=== PATIENT | female | born 1960 | race Caucasian/White ===

== ENCOUNTER 2020-05-30 14:58 | Emergency (ER) | payer OTHER, MEDICAID ==
[2020-05-30] MEDS ORDERED: Sodium Chloride 0.9% 10 ML Syringe FLUSH PRN ×2 (15:10→15:21)
[2020-05-30] MEDS ORDERED: Sodium Chloride 0.9% 1,000 ML IV SCH (15:15)
[2020-05-30] MEDS ORDERED: HYDROmorphone 0.5 MG/0.5 ML Syringe IVPUSH ONE ×2 (15:15→17:49)
[2020-05-30] MEDS ORDERED: Iopamidol 612 MG/ML 50 ML SDV IVPUSH ONE (15:21)
[2020-05-30] MEDS ORDERED: Iopamidol 612 MG/ML 100 ML Bottle IVPUSH ONE (15:21)
[2020-05-30] MEDS ORDERED: Sodium Chloride 0.9% 45 ML IV SCH (15:30)
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
== END 2020-05-30 18:20 | disposition home or self-care (01) ==
LOC: JD.ED 14:58
DX: S22.069A Unspecified fracture of T7-T8 vertebra, initial encounter for closed fracture (principal); S12.600A Unspecified displaced fracture of seventh cervical vertebra, initial encounter for closed fracture; S22.42XA Multiple fractures of ribs, left side, initial encounter for closed fracture; J44.9 Chronic obstructive pulmonary disease, unspecified; M19.90 Unspecified osteoarthritis, unspecified site; F17.210 Nicotine dependence, cigarettes, uncomplicated; Z86.73 Personal history of transient ischemic attack (TIA), and cerebral infarction without residual deficits; Z79.82 Long term (current) use of aspirin; Z79.899 Other long term (current) drug therapy; V89.2XXA Person injured in unspecified motor-vehicle accident, traffic, initial encounter
CPT/HCPCS: 36415; 70450; 71260; 72125; 72128; 72131; 73080; 74177; 80053; 80307; 83690; 85025; 96374; 96376; 99285; J1170; J7030; Q9967; 99284

== ENCOUNTER 2021-03-13 09:28 | Emergency (ER) | payer MEDICAID ==
--- NOTE | 2021-03-13 09:48 | EDM.PDOC ---
ED HPI GENERAL MEDICAL PROBLEM - General Chief Complaint: Trauma Stated Complaint: PATRICIA AMB Time Seen by Provider: 03/13/21 09:30 Source of Information: Reports: Patient, EMS History Limitations: Reports: No Limitations - History of Present Illness INITIAL COMMENTS - FREE TEXT/NARRATIVE: 60-year-old female presents to the ED per ambulance. She states she went out to have a cigarette on the deck outside this morning and got tripped up or lost her balance and fell striking the parietal aspect of her head on the railing of the deck and falling to the floor. She suffered some abrasions to her left elbow and forearm. The left hand is already in a Ortho-Glass splint due to fracture suffered from stroke in September of this year. She denies headache nausea or vomiting at this time. She did not get up in the ambulance had to pick her up from the deck floor. Her daughter came out and picked her up and brought her into the house after she kicked the side of the house to get her attention. She is complaining of mild left hip pain but she has full range of motion. She denies any neck pain. The patient is on aspirin and Plavix. Onset: Today, Sudden Onset Date: 03/13/21 Onset Time: 08:50 Duration: Minutes: Location: Reports: Head (Left parietal scalp), Upper Extremity, Left (Left elbow and forearm area) Quality: Reports: Ache, Throbbing Severity: Mild (L throbbing) Improves with: Reports: Rest Worsens with: Reports: None, Other Context: Reports: Trauma (Got tripped up and fell versus losing her balance striking the left side of her head on a railing outside on the deck this morning.). Denies: Activity, Exercise, Lifting, Sick Contact Associated Symptoms: Reports: Headaches, Shortness of Breath. Denies: Confusion, Chest Pain, Cough, cough w sputum, Diaphoresis, Fever/Chills, Loss of Appetite, Malaise, Nausea/Vomiting, Rash, Seizure, Syncope, Weakness Treatments BINGO USHER: Reports: Other (see below) (None.) Left Upper Arm Pain Score (Numeric/FACES): 3 - Related Data Allergies Allergy/AdvReac Type Severity Reaction Status Date / Time No Known Allergies Allergy Verified 03/13/21 09:35 Home Meds: Home Meds Aspirin 81 mg PO DAILY 05/30/20 [History] Hydrocodone/Acetaminophen [HYDROcodone-Acetaminophen 5-325 MG] 1 - 2 each PO Q6HR PRN #20 tablet 05/30/20 [Rx] Oxybutynin 5 mg PO DAILY 05/30/20 [History] Pantoprazole Sodium [Protonix] 40 mg PO DAILY 05/30/20 [History] Rosuvastatin [Crestor] 10 mg PO DAILY 05/30/20 [History] traZODone HCl [Trazodone HCl] 50 mg PO ASDIRECTED PRN 05/30/20 [History] Past Medical History HEENT History: Reports: Impaired Vision Cardiovascular History: Reports: None Respiratory History: Reports: COPD Other Respiratory History: needs a sleep study Gastrointestinal History: Reports: Irritable Bowel Syndrome Genitourinary History: Reports: None 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: Musculoskeletal History: Reports: Arthritis Neurological History: Reports: CVA Psychiatric History: Reports: PTSD Endocrine/Metabolic History: Reports: None Hematologic History: Reports: None Immunologic History: Reports: None Oncologic (Cancer) History: Reports: None Dermatologic History: Reports: None - Infectious Disease History Infectious Disease History: Reports: Chicken Pox, Measles, Mumps - Past Surgical History HEENT Surgical History: Reports: Adenoidectomy, Tonsillectomy Female Surgical History: Reports: None Social & Family History - Family History Family Medical History: No Pertinent Family History Cardiac: Reports: Heart Murmur Neurological: Reports: CVA Endocrine/Metabolic: Reports: Diabetes, type II Oncologic: Reports: Skin - Caffeine Use Caffeine Use: Reports: Coffee, Soda - Living Situation & Occupation Living situation: Reports: Occupation: Unemployed Review of Systems - Review of Systems Review Of Systems: See Below Constitutional: Reports: Weakness (Still has some mild left-sided residual weakness). Denies: Chills, Diaphoresis, Fever, Other Eyes: Reports: No Symptoms, Glasses Ears: Reports: No Symptoms Nose: Reports: No Symptoms (Reading) Mouth/Throat: Reports: No Symptoms Respiratory: Reports: Shortness of Breath, Cough ( Occasional sputum production) Cardiovascular: Denies: Chest Pain, Edema, Irregular Heart Rate, Palpitations, Syncope, Other GI/Abdominal: Reports: No Symptoms Genitourinary: Reports: Other ([place] frequency with urgency.) Musculoskeletal: Reports: Other (Early left wrist and hand is any more volar Ortho-Glass splint and she is due for casting tomorrow). Denies: Neck Pain Skin: Reports: Bruising Neurological: Reports: Difficulty Walking. Denies: Confusion (Is easily due to being on Plavix and aspirin), Dizziness, Headache, Numbness, Syncope, Tingling, Trouble Speaking (Left leg is weak at times.), Weakness Psychiatric: Reports: No Symptoms ED EXAM, GENERAL - Physical Exam Exam: See Below Exam Limited By: No Limitations General Appearance: Alert, WD/WN, Anxious, Mild Distress, Other (Temperature is 36.1 degrees. Heart rate is 94 and sinus. Respiratory is 18 with O2 sats of 95% room air. BP 1 4078.) Eye Exam: Bilateral Eye: Normal Inspection (No blepharal pallor or scleral icterus.), PERRL Ears: Normal External Exam Nose: Normal Inspection, Normal Mucosa, No Blood Throat/Mouth: Normal Inspection, Normal Lips, Normal Teeth, Normal Oropharynx Head: Other (She has an area of swelling proximally 2.5 cm in diameter over her left parietal scalp chest superior and posterior to the left ear.) Neck: Normal Inspection, Supple, Non-Tender, Full Range of Motion. No: Carotid Bruit, Lymphadenopathy (L), Lymphadenopathy (R) Respiratory/Chest: No Respiratory Distress, No Accessory Muscle Use, Chest Non- Tender, Wheezing (Letter to expiratory wheezes lung bases.), Other Cardiovascular: Normal Peripheral Pulses (No pain on firm compression of ribs and sternum.), Regular Rate, Rhythm, No Edema, No Gallop, No Murmur, No Rub Peripheral Pulses: 2+: Carotid (L), Carotid (R), Posterior Tibial (L), Posterior Tibial (R), Dorsalis Pedis (L), Dorsalis Pedis (R) GI/Abdominal: Normal Bowel Sounds, Soft, Non-Tender, No Organomegaly, No Mass, Pelvis Stable, Other (Mildly obese.). No: Guarding, Rigid, Rebound, Tender Back Exam: Normal Inspection, Full Range of Motion, Other (Patient does have a history of 2 vertebral compression fractures she believes in lumbar spine and lower thoracic spine. No pain on examination today. No abrasions or contusions). No: CVA Tenderness (L), CVA Tenderness (R) Extremities: Leg Pain (Has discomfort on palpation over the left greater trochanteric process and hip but has full internal and external rotation and flexion of the hip with no evidence of bony injury.), Other (Superficial abrasions to the left lower humerus and elbow area. No injury to the right upper extremity or shoulder. No pain on pression of left shoulder or clavicle.) Neurological: Alert, Oriented, CN II-XII Intact, Normal Cognition Psychiatric: Normal Affect, Anxious Skin Exam: Warm, Dry, Intact, Normal Color, No Rash #1 Interpretation EKG Date: 03/13/21 Time: 09:33 Rhythm: NSR Rate (Beats/Min): 90 [place]: Normal P-Wave: Enlarged (Consider mild left atrial hypertrophy) QRS: Other (Early R wave transition V3 consider septal hypertrophy pattern) ST-T: Other (Nonspecific T wave flattening in lead I in inversion aVL with Q waves noted in aVL consider old lateral wall infarct) QT: Normal EKG Interpretation Comments: Abnormal ECG Course - Vital Signs Last Recorded V/S: Last Vital Signs Temp 37.1 C 03/13/21 12:56 Pulse 70 03/13/21 12:56 Resp 18 03/13/21 12:56 BP 137/80 03/13/21 12:56 Pulse Ox 97 03/13/21 12:56 - Orders/Labs/Meds Labs: Laboratory Tests 03/13/21 03/13/21 Range/Units 09:52 09:52 WBC 8.70 (3.98-10.04) K/mm3 RBC 4.40 (3.98-5.22) M/mm3 Hgb 12.6 (11.2-15.7) gm/dl Hct 38.3 (34.1-44.9) % MCV 87.0 (79.4-94.8) fl MCH 28.6 (25.6-32.2) pg MCHC 32.9 (32.2-35.5) g/dl RDW Std Deviation 46.8 H (36.4-46.3) fL Plt Count 323 (182-369) K/mm3 MPV 9.2 L (9.4-12.3) fl Neut % (Auto) 66.7 (34.0-71.1) % Lymph % (Auto) 19.3 (19.3-51.7) % [place] % (Auto) 9.9 (4.7-12.5) % Eos % (Auto) 3.2 (0.7-5.8) Baso % (Auto) 0.3 (0.1-1.2) % Neut # (Auto) 5.80 (1.56-6.13) K/mm3 Lymph # (Auto) 1.68 (1.18-3.74) K/mm3 [place] # (Auto) 0.86 H (0.24-0.36) K/mm3 Eos # (Auto) 0.28 (0.04-0.36) K/mm3 Baso # (Auto) 0.03 (0.01-0.08) K/mm3 Sodium 140 (136-145) mEq/L Potassium 4.7 (3.5-5.1) mEq/L Chloride 105 (98-107) mEq/L Carbon Dioxide 25 (21-32) mEq/L Anion Gap 14.7 (5-15) BUN 15 (7-18) mg/dL Creatinine 0.9 (0.55-1.02) mg/dL Est Cr Clr Drug Dosing 67.05 mL/min Estimated GFR (MDRD) > 60 (>60) mL/min BUN/Creatinine Ratio 16.7 (14-18) Glucose 122 H (70-99) mg/dL Calcium 8.5 (8.5-10.1) mg/dL Total Bilirubin 0.5 (0.2-1.0) mg/dL AST 22 (15-37) U/L ALT 45 (14-59) U/L Alkaline Phosphatase 128 H (46-116) U/L Total Protein 7.1 (6.4-8.2) g/dl Albumin 3.7 (3.4-5.0) g/dl Globulin 3.4 gm/dL Albumin/Globulin Ratio 1.1 (1-2) Meds: Medications Discontinued Medications Generic Name Dose Route Start Last Admin Trade Name Freq PRN Reason Stop Dose Admin Al Hydroxide/Mg Hydroxide 30 ml 03/13/21 11:04 03/13/21 11:33 Aluminum Hydroxide/Magnesium Hydroxide/Simethicone Susp 30 Ml Cup PO 03/13/21 11:05 30 ml ONETIME ONE Administration - Radiology Interpretation Free Text/Narrative:: 60-year-old female presents to the ED per [facility] after getting tripped up or losing her balance and falling on the deck outside of her daughter's home where she resides. Her left side is weak post stroke in September of this year. She hit the left side of her head primarily parietal scalp on the rail of the deck. No loss of conscious but did days her. She ended up on the deck floor and unable to get up on her own volition. Her left hand is immobilized in a volar Ortho-Glass splint due to fracture I believe in one of her fingers. She is due for casting tomorrow. No nausea vomiting. No neck injury on exam. She does have some abrasions to the left elbow and distal numerous on the left side. There is over the left hip and greater trochanteric process but has full range of motion a internal/external rotation on exam. Due to being on Plavix and aspirin she will have CT head performed. - Re-Assessments/Exams Free Text/Narrative Re-Assessment/Exam: 03/13/21 10:43 T of the head was performed without IV contrast today. Findings revealed a low-density is seen within the posterior right frontal lobe as well as a small portion of the parietal region. This finding is most likely due to previous infarct or encephalomalacia from prior trauma. Several calcifications are seen within this low density. Low-density causes ex vacuo enlargement of the right lateral ventricle. Ventricles as well as the sulci over the convexities and basal cisterns are otherwise mildly prominent. No other abnormal signal is seen within the brain parenchyma. No midline shift or mass- effect is seen. No evidence of intracranial hemorrhage is identified. Bone window settings were reviewed. Visualized mastoid sinuses and paranasal sinuses show no acute. No acute calvarial abnormalities appreciated. 03/13/21 11:03 I have discussed the findings of her CT with the patient and indicated that there is no intracranial bleeding. She is developing hematoma over the distal left lateral humerus with symptoms from her fall. She now appreciates pain on the dorsal aspect of her right lateral foot and it is bruised in this area. She will have her have x-rays of her right foot performed. She is complaining of heartburn and I will therefore give her Maalox 30 mils p.o. 03/13/21 11:58 x-rays of the right foot do not reveal any broken bones. Bones are very osteopenic. We will try and get her up walking and see how she does. She tends to be a little off kilter since her stroke and has to be careful how she walks. He does have a walker and a cane which she rarely uses. 03/13/21 12:43: We did get the patient up and walking in the hallway and she did relatively well. She is mildly off balance due to previous CVA. Had minimal p ain in her right foot. Therefore her daughter will come and pick her up and she will be discharged from the department. Departure - Departure Time of Disposition: 13:25 Disposition: Home, Self-Care 01 Condition: Fair Clinical Impression: Fall as cause of accidental injury at home as place of occurrence Qualifiers: Encounter type: initial encounter Qualified Code(s): W19.XXXA - Unspecified fall, initial encounter Scalp contusion Qualifiers: Encounter type: initial encounter Qualified Code(s): S00.03XA - Contusion of scalp, initial encounter Contusion of right foot Qualifiers: Encounter type: initial encounter Qualified Code(s): S90.31XA - Contusion of right foot, initial encounter - Discharge Information *PRESCRIPTION DRUG MONITORING PROGRAM REVIEWED*: Not Applicable *COPY OF PRESCRIPTION DRUG MONITORING REPORT IN PATIENT CAROLINE: Not Applicable Instructions: Foot Contusion, [id number], Facial or Scalp Contusion, [id number] Referrals: Rhona Martin NP [Primary Care Provider] - Forms: ED Department Discharge Additional Instructions: Evaluation in the emergency room today in regards to injury sustained from either losing her balance or tripping and falling on the outside deck this morning. Reportedly struck the right parietal aspect of your head on the railing on your way to the ground. No loss of consciousness. CT scan of the head was performed as you are already on blood thinners and aspirin and no intracranial bleeding or signs of stroke are evident. Evidence of an old stroke involving the right frontal temporal lobe is evident. X-rays of the right foot also carried out due to development of ecchymoses or bruising over the right lateral foot. No fractures were identified but the bones are very thin or osteopenic. You should have a DEXA scan done in the next 2 to 3 months. He also suffered abrasions and contusion to your left lower arm above your elbow. This area will need to be cleansed daily with soap and water and topical antibiotic such as bacitracin or Polysporin applied to the area once daily for the next 3 days to prevent secondary infection. Sepsis Event Note (ED) - Focused Exam Vital Signs: Vital Signs Temp Pulse Resp BP Pulse Ox 03/13/21 12:56 37.1 C 70 18 137/80 97 03/13/21 09:30 36.1 C 94 18 140/78 95
--- NOTE | 2021-03-13 10:05 | CT ---
Head CT Technique: Multiple axial sections through the brain were obtained. Intravenous contrast was not utilized. Reconstructed coronal and sagittal images were obtained. Comparison: No prior intracranial imaging is available. Findings: Low density is seen within the posterior right frontal as well as a small portion of the parietal region. This finding is most likely due to previous infarct or encephalomalacia from prior trauma. Several calcifications are seen within this low density. Low-density causes ex vacuole enlargement of the right lateral ventricle. Ventricles as well as sulci over the convexities and basal cisterns are otherwise mildly prominent. No other abnormal signal is seen within the brain parenchyma. No midline shift or mass-effect is seen. No evidence of intracranial hemorrhage. Bone window settings were reviewed. Visualized mastoid sinuses and paranasal sinuses show nothing acute. No acute calvarial abnormality is appreciated. Impression: 1. Low density within the posterior right frontal as well as a small portion of the parietal lobe on the right side. Findings either represent old trauma with encephalomalacia or an old infarct. These findings cause ex vacuole enlargement of the right lateral ventricle. 2. Mild generalized atrophy is seen. 3. No acute intracranial abnormality is appreciated. Diagnostic code #2
[2021-03-13] MEDS ORDERED: Aluminum Hydroxide/Magnesium Hydroxide/Simethicone Susp 30 ML Cup PO ONE (11:04)
--- NOTE | 2021-03-13 12:01 | CR ---
Right foot: 3 views of the right foot were obtained. Comparison: No prior foot study is available. Scattered joint space narrowing is seen within the DIP and PIP joints. Very minimal spur at the attachment of the Achilles tendon to the calcaneus is noted posteriorly. No acute fracture, dislocation or other bony abnormality is appreciated. Impression: 1. Nonacute findings as noted above. 2. No acute fracture or subluxation is seen. Diagnostic code #2
== END 2021-03-13 13:08 | disposition home or self-care (01) ==
LOC: JD.ED 09:28
DX: S00.03XA Contusion of scalp, initial encounter (principal); S90.31XA Contusion of right foot, initial encounter; S40.212A Abrasion of left shoulder, initial encounter; S50.312A Abrasion of left elbow, initial encounter; J44.9 Chronic obstructive pulmonary disease, unspecified; Z79.82 Long term (current) use of aspirin; Z79.899 Other long term (current) drug therapy; Z86.73 Personal history of transient ischemic attack (TIA), and cerebral infarction without residual deficits; W01.198A Fall on same level from slipping, tripping and stumbling with subsequent striking against other object, initial encounter; Y92.009 Unspecified place in unspecified non-institutional (private) residence as the place of occurrence of the external cause
CPT/HCPCS: 29105; 36415; 70450; 73630; 80053; 85025; 93005; 99284; A9270; 93010

== ENCOUNTER 2021-03-18 10:18 | Emergency (ER) | payer MEDICAID ==
[2021-03-18] MEDS ORDERED: Sodium Chloride 0.9% 10 ML Syringe FLUSH PRN (10:36)
[2021-03-18] MEDS ORDERED: HYDROmorphone 1 MG/ML Syringe IVPUSH ONE (10:36)
[2021-03-18] MEDS ORDERED: Ondansetron 4 MG/2 ML SDV IVPUSH ONE (10:36)
--- NOTE | 2021-03-18 10:41 | EDM.PDOC ---
ED HPI GENERAL MEDICAL PROBLEM - General Chief Complaint: Upper Extremity Injury/Pain Stated Complaint: RT SHOULDER INJURY Time Seen by Provider: 03/18/21 10:30 Source of Information: Reports: Patient History Limitations: Reports: No Limitations (Right shoulder and right proximal arm) - History of Present Illness INITIAL COMMENTS - FREE TEXT/NARRATIVE: 60-year-old female presents to the ED per private vehicle after falling at home this morning. She states she got up to go to the bathroom and the next and she knew she was face down on the carpet with acute pain in her right shoulder and upper arm. She denies hurting her head or neck. Pain is all in the right shoulder and proximal humerus on the right side. She denies any other injuries. Of note her left hand is immobilized in a Ortho-Glass splint due to a fracture in the wrist area. Onset: Today, Sudden Onset Date: 03/18/21 Onset Time: 09:35 Duration: Minutes: Location: Reports: Upper Extremity, Right Quality: Reports: Ache, Throbbing Severity: Moderate Improves with: Reports: Rest Worsens with: Reports: Other Context: Reports: Trauma (Fall at home with blunt trauma to the right shoulder and proximal humerus). 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.) Right Shoulder Pain Score (Numeric/FACES): 9 - Related Data Allergies Allergy/AdvReac Type Severity Reaction Status Date / Time No Known Allergies Allergy Verified 03/18/21 10:26 Home Meds: Home Meds Oxybutynin 5 mg PO DAILY 05/30/20 [History] Pantoprazole Sodium [Protonix] 40 mg PO DAILY 05/30/20 [History] Rosuvastatin [Crestor] 10 mg PO DAILY 05/30/20 [History] traZODone HCl [Trazodone HCl] 50 mg PO ASDIRECTED PRN 05/30/20 [History] Sertraline [Zoloft] 50 mg PO DAILY 03/18/21 [History] oxyCODONE HCl/Acetaminophen [Percocet 5-325 mg Tablet] 1 - 2 each PO Q4H PRN #16 tablet 03/18/21 [Rx] Past Medical History HEENT History: Reports: Impaired Vision Cardiovascular History: Reports: High Cholesterol Respiratory History: Reports: COPD Other Respiratory History: needs a sleep study Gastrointestinal History: Reports: Irritable Bowel Syndrome Genitourinary History: Reports: None 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: Musculoskeletal History: Reports: Arthritis Neurological History: Reports: CVA Psychiatric History: Reports: PTSD Endocrine/Metabolic History: Reports: None Hematologic History: Reports: None Immunologic History: Reports: None Oncologic (Cancer) History: Reports: None Dermatologic History: Reports: None - Infectious Disease History Infectious Disease History: Reports: Chicken Pox, Measles, Mumps - Past Surgical History HEENT Surgical History: Reports: Adenoidectomy, Tonsillectomy Social & Family History - Family History Family Medical History: No Pertinent Family History Cardiac: Reports: Heart Murmur Neurological: Reports: CVA Endocrine/Metabolic: Reports: Diabetes, type II Oncologic: Reports: Skin - Tobacco Use Tobacco Use Status *Q: Current Every Day Tobacco User Years of Tobacco use: 30 Packs/Tins Daily: 0.2 - Caffeine Use Caffeine Use: Reports: Coffee, Soda - Recreational Drug Use Recreational Drug Use: No - Living Situation & Occupation Living situation: Reports: Occupation: Unemployed Review of Systems - Review of Systems Review Of Systems: See Below Constitutional: Reports: No Symptoms Eyes: Reports: Glasses Ears: Reports: No Symptoms Nose: Reports: No Symptoms Mouth/Throat: Reports: No Symptoms Respiratory: Reports: No Symptoms Cardiovascular: Reports: Lightheadedness (At times especially when getting up from the seated or lying down position). Denies: Chest Pain, Edema, Irregular Heart Rate GI/Abdominal: Reports: No Symptoms Genitourinary: Reports: No Symptoms Musculoskeletal: Reports: Other (Forearm is in a Ortho-Glass volar splint I believe due to healing nondisplaced fracture of the radius) Skin: Reports: No Symptoms Neurological: Reports: No Symptoms Psychiatric: Reports: No Symptoms ED EXAM, GENERAL - Physical Exam Exam: See Below Exam Limited By: No Limitations General Appearance: Alert, WD/WN, Mild Distress, Other (Temperature is 36.1 with a heart rate of 95 and sinus. Respiratory to 16 with O2 sats of 97% room air. BP is reported at 135 118 which is inaccurate. Pulse pressure is too close together.) Eye Exam: Bilateral Eye: Normal Inspection (No blepharal pallor.) Throat/Mouth: Normal Inspection, Normal Lips, Normal Teeth, Normal Oropharynx, Other Head: Atraumatic, Normocephalic (No injuries to her face identified), Other Neck: Normal Inspection, Supple (No injuries to the head or face identified), Non-Tender, Full Range of Motion, Other (Tenderness in the distribution of the trapezius muscle superior belly on the right side). No: Lymphadenopathy (L), Lymphadenopathy (R) Respiratory/Chest: No Respiratory Distress, No Accessory Muscle Use, Decreased Breath Sounds (Sounds are diminished to the lower 15% lung pedro bilaterally.), Wheezing. No: Rales, Rhonchi Cardiovascular: Normal Peripheral Pulses, Regular Rate, Rhythm, No Edema, No Gallop, No Murmur, No Rub Peripheral Pulses: 2+: Carotid (L), Carotid (R), Radial (R) (Good ulnar pulse right wrist), Posterior Tibial (L), Posterior Tibial (R), Dorsalis Pedis (L), Dorsalis Pedis (R) Back Exam: Normal Inspection, Full Range of Motion. No: CVA Tenderness (L), CVA Tenderness (R) Extremities: Other (Pain and tenderness along the distal clavicle over the acromium process and AC joint with no obvious separation. Pain to palpation proximal humerus down to her elbow. Right humeral head is prominent with flattening of the lateral shoulder suggesting tear dislocation.). No: Normal Inspection Neurological: Alert, Oriented, CN II-XII Intact, Normal Cognition, Other (Normal axillary nerve sensation and radial nerve sensation dorsal right hand) Psychiatric: Normal Affect, Normal Mood Skin Exam: Warm, Dry, Intact, Normal Color, No Rash ED TRAUMA EXTREMITY PROCEDURES - Joint Reduction Right Shoulder Sedation: Conscious Sedation (Provided by ANAYELI Tate.) Pre-Procedure NV Status: Normal Post-Procedure NV Status: Normal Technique: Traction/Counter Traction Post-Reduction Imaging: Completely Reduced, No Fracture Seen Joint Reduction Complications: No Joint Reduction Complication Description: Post reduction films revealed return to normal anatomical position. She had normal sensation in the distribution of right axillary nerve and right radial nerve dorsal right hand Course - Vital Signs Last Recorded V/S: Last Vital Signs Temp 36.1 C 09/07/21 10:21 Pulse 95 03/18/21 10:21 Resp 16 03/18/21 10:21 BP 135/118 H 03/18/21 10:21 Pulse Ox 97 03/18/21 10:21 Orthostatic Blood Pressure [ 131/81 Standing] Orthostatic Blood Pressure [ 127/74 Sitting] Orthostatic Blood Pressure [ 127/73 Supine] - Orders/Labs/Meds Orders: Active Orders 24 hr Category Date Time Status Orthostatic Vital Signs [RC] ASDIRECTED Care 03/18/21 10:42 Active Peripheral IV Care [RC] . DIRECTED Care 03/18/21 10:36 Active Humerus Rt [CR] Stat Exams 03/18/21 10:38 Taken Dextrose 5%-0.9% NaCl [Dextrose 5%-Normal Saline] 1,000 Med 03/18/21 10:45 Active ml IV ASDIRECTED Sodium Chloride 0.9% [Saline Flush] Med 03/18/21 10:36 Active 10 ml FLUSH ASDIRECTED PRN Peripheral IV Insertion Adult [OM.PC] Stat Oth 03/18/21 10:36 Ordered Medication Orders Dextrose/Sodium Chloride (Dextrose 5%-Normal Saline) 1,000 mls @ 999 mls/hr IV ASDIRECTED VIRAL Last Admin: 03/18/21 11:09 Dose: 999 mls/hr Documented by: KENNETH Sodium Chloride (Sodium Chloride 0.9% 10 Ml Syringe) 10 ml FLUSH ASDIRECTED PRN PRN Reason: Keep Vein Open Last Admin: 03/18/21 11:00 Dose: 10 ml Documented by: KENNETH Meds: Medications Generic Name Dose Route Start Last Admin Trade Name Freq PRN Reason Stop Dose Admin Dextrose/Sodium Chloride 1,000 mls @ 999 mls/hr 03/18/21 10:45 03/18/21 11:09 Dextrose 5%-Normal Saline IV 999 mls/hr ASDIRECTED VIRAL Administration Sodium Chloride 10 ml 03/18/21 10:36 03/18/21 11:00 Sodium Chloride 0.9% 10 Ml Syringe FLUSH 10 ml ASDIRECTED PRN Administration Keep Vein Open Discontinued Medications Generic Name Dose Route Start Last Admin Trade Name Freq PRN Reason Stop Dose Admin Hydromorphone HCl 1 mg 03/18/21 10:36 03/18/21 11:09 Hydromorphone 1 Mg/Ml Syringe IVPUSH 03/18/21 10:37 1 mg ONETIME ONE Administration Lidocaine HCl Confirm 03/18/21 11:31 Xylocaine-Mpf 1% Administered 03/18/21 11:32 Dose 4 mls @ as directed .ROUTE .STK-MED ONE Ondansetron HCl 4 mg 03/18/21 10:36 03/18/21 11:09 Ondansetron 4 Mg/2 Ml Sdv IVPUSH 03/18/21 10:37 4 mg ONETIME ONE Administration Propofol Confirm 03/18/21 11:31 Propofol 200 Mg/20 Ml Sdv Administered 03/18/21 11:32 Dose 200 mg .ROUTE .STK-MED ONE - Radiology Interpretation Free Text/Narrative:: 60-year-old female presents to the ED after syncopal event at home after getting up out of bed this morning. She states she was getting out of bed to go to the bathroom when she woke on the floor face down on the carpet. She had pain in her right shoulder and proximal humerus and this is the reason she came to the ED. Of note the patient presented last week after a fall as well. Plan orthostatic blood pressures to be done. IV will be D5 normal saline at open. Pain medication Dilaudid 0.5 mg IV with Zofran 4 mg IV. She will have x-rays of her right shoulder and right humerus. - Re-Assessments/Exams Free Text/Narrative Re-Assessment/Exam: 03/18/21 11:18 shoulder x-ray reveals an anterior dislocation of the right humerus. No Hill-Sachs deformity is evident. Clavicle and acromial process are normal. X-rays of the humerus reveal no humeral fracture. Patient has not yet eaten or drank at all today. She is therefore n.p.o. I will call anesthesia with a view to providing propofol for sedation to allow reduction of anterior dislocation right shoulder. 03/18/21 11:20 she is very mildly orthostatic with a heart rate change from 84- 103 from lying to standing. No significant blood pressure drop with standing, however the patient is in severe pain due to anterior dislocation of her right shoulder. 03/18/21 11:50: Timeout was 11:41: ANAYELI Tate present to provide propofol anesthetic. Once satisfactory sedation was achieved I was able to reduce the right shoulder into anatomical position by traction countertraction technique. Postreduction films to be done now. 03/18/21 12:10: X-ray of the right shoulder post reduction reveals return to normal anatomical position without Hill-Sachs deformity or obvious fractures. She will be placed in a sling and swath at this time 03/18/21 12:44 Patient is feeling fine and wishes to be discharged. She will be placed in a sling and swath for the next 3 weeks with plans to follow-up up with Dr. Sheriff --orthopedic surgeon in 3 weeks time. She will be placed on Percocet 5/325 mg tab 1 tablet every 6 hours necessary for pain relief with Motrin 600 mg every 6 hours as well. 16 tablets provided. Departure - Departure Time of Disposition: 12:45 Disposition: Home, Self-Care 01 Condition: Fair Clinical Impression: Fall as cause of accidental injury at home as place of occurrence Qualifiers: Encounter type: initial encounter Qualified Code(s): W19.XXXA - Unspecified fall, initial encounter Closed anterior dislocation of right shoulder Qualifiers: Encounter type: initial encounter Qualified Code(s): S43.014A - Anterior dislocation of right humerus, initial encounter - Discharge Information *PRESCRIPTION DRUG MONITORING PROGRAM REVIEWED*: Not Applicable *COPY OF PRESCRIPTION DRUG MONITORING REPORT IN PATIENT CAROLINE: Not Applicable Prescriptions: oxyCODONE HCl/Acetaminophen [Percocet 5-325 mg Tablet] 1 - 2 each PO Q4H PRN #16 tablet PRN Reason: pain relief. Instructions: Shoulder Dislocation, [id number] Referrals: Rhona Martin NP [Primary Care Provider] - Forms: ED Department Discharge Additional Instructions: Evaluation in the emergency room this morning after suffering a fall while getting out of bed this morning. Is unclear whether you had a syncopal event or fainting episode that caused you to fall to the floor versus a drop in your blood pressure. We did document a mild drop in your blood pressure upon standing in the emergency room. Evaluation revealed an obvious deformity of your right shoulder. X-rays confirmed an anterior dislocation of your shoulder with no broken bones in the shoulder or upper arm. 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 X-rays done afterwards revealed return to normal anatomical position. Treatment is sling and swath to hold your arm stable against her body for the next 3 weeks to allow the ligaments and tendons around the shoulder as well as the shoulder capsule to start to heal. Suggest follow-up with Dr. Sheriff orthopedic surgeon in 2 to 3 weeks time. Please phone [phone] to arrange an appointment. Treatment is ice to the shoulder today and tomorrow for 1/2 hours of every 4 hours. After that may use heat to the shoulder for comfort. Suggest use of Motrin 600 mg every 6 hours as needed for relief of pain and inflammation. Percocet tabs 5/325 mg strength 1 tablet every 6 hours as needed for pain relief in addition to Motrin if needed. This medication if taken should be taken with food in your stomach to prevent nausea or vomiting. Sepsis Event Note (ED) - Evaluation Sepsis Screening Result: No Definite Risk - Focused Exam Vital Signs: Vital Signs Temp Pulse Resp BP Pulse Ox 03/18/21 10:21 36.1 C 95 16 135/118 H 97 - My Orders Last 24 Hours: My Active Orders 03/18/21 10:36 Peripheral IV Care [RC] . DIRECTED Sodium Chloride 0.9% [Saline Flush] 10 ml FLUSH ASDIRECTED PRN Peripheral IV Insertion Adult [OM.PC] Stat 03/18/21 10:38 Humerus Rt [CR] Stat 03/18/21 10:42 Orthostatic Vital Signs [RC] ASDIRECTED 03/18/21 10:45 Dextrose 5%-0.9% NaCl [Dextrose 5%-Normal Saline] 1,000 ml IV ASDIRECTED - Assessment/Plan Last 24 Hours: My Active Orders 03/18/21 10:36 Peripheral IV Care [RC] . DIRECTED Sodium Chloride 0.9% [Saline Flush] 10 ml FLUSH ASDIRECTED PRN Peripheral IV Insertion Adult [OM.PC] Stat 03/18/21 10:38 Humerus Rt [CR] Stat 03/18/21 10:42 Orthostatic Vital Signs [RC] ASDIRECTED 03/18/21 10:45 Dextrose 5%-0.9% NaCl [Dextrose 5%-Normal Saline] 1,000 ml IV ASDIRECTED
[2021-03-18] MEDS ORDERED: Dextrose 5%-0.9% NaCl 1,000 ML IV SCH (10:45)
--- NOTE | 2021-03-18 11:30 | PCM.PREANE ---
Preanesthetic Assessment - Procedure Proposed Procedure: closed reduiction right shoulder - Anesthesia/Transfusion/Family Hx Anesthesia History: Prior Anesthesia Without Reaction Family History of Anesthesia Reaction: No Transfusion History: No Prior Transfusion(s) - Review of Systems General: No Symptoms Pulmonary: No Symptoms Cardiovascular: No Symptoms Gastrointestinal: No Symptoms Neurological: Other (tia cva september 2020) Other: Reports: Diabetes, Depression - Physical Assessment NPO Status Date: 03/17/21 NPO Status Time: 20:00 Vital Signs: Last Vital Signs Temp 97 F 03/18/21 10:21 Pulse 95 03/18/21 10:21 Resp 16 03/18/21 10:21 BP 135/118 H 03/18/21 10:21 Pulse Ox 97 03/18/21 10:21 Orthostatic Blood Pressure [ 131/81 Standing] Orthostatic Blood Pressure [ 127/74 Sitting] Orthostatic Blood Pressure [ 127/73 Supine] Height: 5 ft 8 in Weight: 77.111 kg ASA Class: 2E Mental Status: Alert & Oriented x3 Airway Class: Mallampati = 2 Dentition: Reports: Missing Tooth/Teeth, Caries Thyro-Mental Finger Breadths: 3 Mouth Opening Finger Breadths: 3 ROM/Head Extension: Full Lungs: Clear to Auscultation, Normal Respiratory Effort Cardiovascular: Regular Rate, Regular Rhythm - Allergies Allergies/Adverse Reactions: Allergies Allergy/AdvReac Type Severity Reaction Status Date / Time No Known Allergies Allergy Verified 03/18/21 10:26 - Blood Blood Available: No - Acknowledgements Anesthesia Type Planned: MAC Pt an Appropriate Candidate for the Planned Anesthesia: Yes Alternatives and Risks of Anesthesia Discussed w Pt/Guardian: Yes Pt/Guardian Understands and Agrees with Anesthesia Plan: Yes PreAnesthesia Questionnaire HEENT History: Reports: Impaired Vision Cardiovascular History: Reports: High Cholesterol Respiratory History: Reports: COPD, Other (See Below) Other Respiratory History: needs a sleep study Gastrointestinal History: Reports: Irritable Bowel Syndrome Genitourinary History: Reports: None 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: Musculoskeletal History: Reports: Arthritis Neurological History: Reports: CVA Psychiatric History: Reports: PTSD Endocrine/Metabolic History: Reports: None Hematologic History: Reports: None Immunologic History: Reports: None Oncologic (Cancer) History: Reports: None Dermatologic History: Reports: None - Infectious Disease History Infectious Disease History: Reports: Chicken Pox, Measles, Mumps - Past Surgical History HEENT Surgical History: Reports: Adenoidectomy, Tonsillectomy - SUBSTANCE USE Tobacco Use Status *Q: Current Every Day Tobacco User Tobacco Use Within Last Twelve Months: Cigarettes Second Hand Smoke Exposure: Yes Recreational Drug Use History: No - HOME MEDS Home Medications: Home Meds Oxybutynin 5 mg PO DAILY 05/30/20 [History] Pantoprazole Sodium [Protonix] 40 mg PO DAILY 05/30/20 [History] Rosuvastatin [Crestor] 10 mg PO DAILY 05/30/20 [History] traZODone HCl [Trazodone HCl] 50 mg PO ASDIRECTED PRN 05/30/20 [History] Sertraline [Zoloft] 50 mg PO DAILY 03/18/21 [History] - CURRENT (IN HOUSE) MEDS Current Meds: Current Medications Dextrose/Sodium Chloride (Dextrose 5%-Normal Saline) 1,000 mls @ 999 mls/hr IV ASDIRECTED VIRAL Last Admin: 03/18/21 11:09 Dose: 999 mls/hr Documented by: Sodium Chloride (Sodium Chloride 0.9% 10 Ml Syringe) 10 ml FLUSH ASDIRECTED PRN PRN Reason: Keep Vein Open Last Admin: 03/18/21 11:00 Dose: 10 ml Documented by: Discontinued Medications Hydromorphone HCl (Hydromorphone 1 Mg/Ml Syringe) 1 mg IVPUSH ONETIME ONE Stop: 03/18/21 10:37 Last Admin: 03/18/21 11:09 Dose: 1 mg Documented by: Ondansetron HCl (Ondansetron 4 Mg/2 Ml Sdv) 4 mg IVPUSH ONETIME ONE Stop: 03/18/21 10:37 Last Admin: 03/18/21 11:09 Dose: 4 mg Documented by:
[2021-03-18] MEDS ORDERED: Lidocaine 1% 4 ML ONE (11:31)
[2021-03-18] MEDS ORDERED: Propofol 200 MG/20 ML SDV ONE (11:31)
--- NOTE | 2021-03-18 11:58 | PCM48HPAN ---
Post Anesthesia Note - EVALUATION WITHIN 48HRS OF ANESTHETIC Vital Signs in Normal Range: Yes Patient Participated in Evaluation: Yes Respiratory Function Stable: Yes Airway Patent: Yes Cardiovascular Function Stable: Yes Hydration Status Stable: Yes Pain Control Satisfactory: Yes Nausea and Vomiting Control Satisfactory: Yes Mental Status Recovered: Yes Vital Signs: Last Vital Signs Temp 97 F 03/18/21 10:21 Pulse 95 03/18/21 10:21 Resp 16 03/18/21 10:21 BP 135/118 H 03/18/21 10:21 Pulse Ox 97 03/18/21 10:21 Orthostatic Blood Pressure [ 131/81 Standing] Orthostatic Blood Pressure [ 127/74 Sitting] Orthostatic Blood Pressure [ 127/73 Supine] 1150 133/59 91 16 97% with oxygen - COMMENTS/OBSERVATIONS Free Text/Narrative:: awake and talking
--- NOTE | 2021-03-18 12:47 | CR ---
Right shoulder: Single AP view of the right shoulder was obtained. Comparison: Prior shoulder study performed earlier on the same day (10:46 AM). Previous dislocation has been reduced. No acute fracture or other abnormality is appreciated. Impression: 1. Previous dislocation has been reduced. 2. No additional abnormality is seen. Diagnostic code #1
--- NOTE | 2021-03-18 12:47 | CR ---
Right shoulder: 3 views of the right shoulder were obtained. Comparison: No prior shoulder study is available. Anterior subcoracoid dislocation is seen. No acute fracture or other abnormality is appreciated. Impression: 1. Dislocated right shoulder. Diagnostic code #3
--- NOTE | 2021-03-18 13:00 | CR ---
Right humerus: 2 views of the right humerus were obtained. Comparison: No prior humerus study is available. Dislocated right shoulder is seen. No acute fracture or other abnormality is appreciated. Impression: 1. Dislocated right shoulder. 2. Two-view right humerus study is otherwise unremarkable. Diagnostic code #3
== END 2021-03-18 12:57 | disposition home or self-care (01) ==
LOC: JD.ED 10:18
DX: S43.014A Anterior dislocation of right humerus, initial encounter (principal); E78.00 Pure hypercholesterolemia, unspecified; J44.9 Chronic obstructive pulmonary disease, unspecified; Z86.73 Personal history of transient ischemic attack (TIA), and cerebral infarction without residual deficits; Z72.0 Tobacco use; W18.39XA Other fall on same level, initial encounter; Y92.009 Unspecified place in unspecified non-institutional (private) residence as the place of occurrence of the external cause
CPT/HCPCS: 23650; 73030; 73060; 96374; 96375; 99283; J1170; J2405; J2704; J7042; 01620

== ENCOUNTER 2021-05-12 17:33 | Emergency (ER) | payer MEDICAID ==
[2021-05-12] MEDS ORDERED: Sodium Chloride 0.9% 10 ML Syringe FLUSH PRN (17:45)
--- NOTE | 2021-05-12 17:56 | EDM.PDOC ---
ED HPI GENERAL MEDICAL PROBLEM - General Chief Complaint: Respiratory Problem Stated Complaint: COPD/SOB Time Seen by Provider: 05/12/21 17:42 Source of Information: Reports: Patient, RN Notes Reviewed History Limitations: Reports: No Limitations - History of Present Illness INITIAL COMMENTS - FREE TEXT/NARRATIVE: Patient is a 61-year-old female who presents to the ER for evaluation of her shortness of breath. States that she has multiple symptoms of COVID-19, that all started yesterday. She states she has shortness of breath, fatigue, muscle aches, fevers and chills, nausea, some diarrhea and a cough that is nonproductive. States she does have a history of COPD and she used her inhaler, and this seemed to help relieve some of the symptoms. States that she is tired but cannot sleep as well. Primary care provider is Rhona Martin. States that her family was ill with COVID-19 for the last 2 weeks. Notes that she was tested about 11 days ago and was negative for COVID-19. She has been fully vaccinated for COVID-19 and also has received her influenza vaccine for this year. - Related Data Allergies Allergy/AdvReac Type Severity Reaction Status Date / Time No Known Allergies Allergy Verified 03/18/21 10:26 Home Meds: Home Meds Oxybutynin 5 mg PO DAILY 05/30/20 [History] Pantoprazole Sodium [Protonix] 40 mg PO DAILY 05/30/20 [History] Rosuvastatin [Crestor] 10 mg PO DAILY 05/30/20 [History] traZODone HCl [Trazodone HCl] 50 mg PO ASDIRECTED PRN 05/30/20 [History] Sertraline [Zoloft] 50 mg PO DAILY 03/18/21 [History] oxyCODONE HCl/Acetaminophen [Percocet 5-325 mg Tablet] 1 - 2 each PO Q4H PRN #16 tablet 03/18/21 [Rx] Past Medical History HEENT History: Reports: Impaired Vision Cardiovascular History: Reports: High Cholesterol Respiratory History: Reports: COPD, Other (See Below) Other Respiratory History: needs a sleep study Gastrointestinal History: Reports: Irritable Bowel Syndrome Genitourinary History: Reports: None 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: Musculoskeletal History: Reports: Arthritis Neurological History: Reports: CVA Psychiatric History: Reports: PTSD Endocrine/Metabolic History: Reports: None Hematologic History: Reports: None Immunologic History: Reports: None Oncologic (Cancer) History: Reports: None Dermatologic History: Reports: None - Infectious Disease History Infectious Disease History: Reports: Chicken Pox, Measles, Mumps - Past Surgical History HEENT Surgical History: Reports: Adenoidectomy, Tonsillectomy Social & Family History - Family History Family Medical History: No Pertinent Family History Cardiac: Reports: Heart Murmur Neurological: Reports: CVA Endocrine/Metabolic: Reports: Diabetes, type II Oncologic: Reports: Skin - Caffeine Use Caffeine Use: Reports: Coffee, Soda - Living Situation & Occupation Living situation: Reports: Occupation: Unemployed ED ROS GENERAL - Review of Systems Review Of Systems: Comprehensive ROS is negative, except as noted in HPI. ED EXAM, GENERAL - Physical Exam Exam: See Below Exam Limited By: No Limitations General Appearance: Alert, WD/WN, No Apparent Distress Respiratory/Chest: No Respiratory Distress, Lungs Clear, Normal Breath Sounds, No Accessory Muscle Use, Chest Non-Tender Cardiovascular: Normal Peripheral Pulses, Regular Rate, Rhythm, No Edema Peripheral Pulses: 2+: Radial (L), Radial (R) Extremities: Normal Inspection, Normal Capillary Refill Neurological: Alert, Oriented, Normal Cognition, No Motor/Sensory Deficits Psychiatric: Normal Affect, Normal Mood Skin Exam: Warm, Dry, Intact, Normal Color, No Rash Course - Vital Signs Last Recorded V/S: Last Vital Signs Temp 97.7 F 05/12/21 17:51 Pulse 86 05/12/21 20:16 Resp 12 05/12/21 20:16 BP 132/53 L 05/12/21 20:16 Pulse Ox 100 05/12/21 20:16 - Orders/Labs/Meds Orders: Active Orders 24 hr Category Date Time Status Peripheral IV Care [RC] . DIRECTED Care 05/12/21 17:46 Active Vital Signs [RC] Q15M Care 05/12/21 18:43 Active EPINEPHrine [Adrenalin] Med 05/12/21 18:42 Active 0.3 mg IM ASDIRECTED PRN Famotidine [Pepcid] Med 05/12/21 18:42 Active 20 mg IVPUSH ASDIRECTED PRN Sodium Chloride 0.9% [Saline Flush] Med 05/12/21 17:45 Active 10 ml FLUSH ASDIRECTED PRN Sodium Chloride 0.9% [Saline Flush] Med 05/12/21 18:45 Active 30 ml FLUSH ASDIRECTED diphenhydrAMINE [Benadryl] Med 05/12/21 18:42 Active 50 mg IVPUSH ASDIRECTED PRN methylPREDNISolone Sod Succ [Solu-MEDROL] Med 05/12/21 18:42 Active 125 mg IVPUSH ASDIRECTED PRN Peripheral IV Insertion Adult [OM.PC] Routine Oth 05/12/21 17:45 Ordered Medication Orders Diphenhydramine HCl (Diphenhydramine 50 Mg/Ml Sdv) 50 mg IVPUSH ASDIRECTED PRN PRN Reason: hypersensitivity reaction Epinephrine HCl (Epinephrine 1 Mg/Ml Sdv) 0.3 mg IM ASDIRECTED PRN PRN Reason: hypersensitivity reaction Famotidine (Famotidine 20 Mg/2 Ml Sdv) 20 mg IVPUSH ASDIRECTED PRN PRN Reason: hypersensitivity reaction Methylprednisolone Sodium Succinate (Methylprednisolone Sodium Succinate 125 Mg/2 Ml Sdv) 125 mg IVPUSH ASDIRECTED PRN PRN Reason: hypersensitivity reaction Sodium Chloride (Sodium Chloride 0.9% 10 Ml Syringe) 10 ml FLUSH ASDIRECTED PRN PRN Reason: Keep Vein Open Last Admin: 05/12/21 18:26 Dose: 10 ml Documented by: IVETTE Sodium Chloride (Sodium Chloride 0.9% 10 Ml Syringe) 30 ml FLUSH ASDIRECTED VIRAL Labs: Laboratory Tests 05/12/21 05/12/21 05/12/21 Range/Units 17:14 18:15 18:15 WBC 8.71 (3.98-10.04) K/mm3 RBC 3.97 L (3.98-5.22) M/mm3 Hgb 11.2 (11.2-15.7) gm/dl Hct 34.4 (34.1-44.9) % MCV 86.6 (79.4-94.8) fl MCH 28.2 (25.6-32.2) pg MCHC 32.6 (32.2-35.5) g/dl RDW Std Deviation 49.3 H (36.4-46.3) fL Plt Count 299 (182-369) K/mm3 MPV 9.2 L (9.4-12.3) fl Neut % (Auto) 61.3 (34.0-71.1) % Lymph % (Auto) 23.1 (19.3-51.7) % Larue % (Auto) 13.8 H (4.7-12.5) % Eos % (Auto) 0.7 (0.7-5.8) Baso % (Auto) 0.2 (0.1-1.2) % Neut # (Auto) 5.34 (1.56-6.13) K/mm3 Lymph # (Auto) 2.01 (1.18-3.74) K/mm3 Larue # (Auto) 1.20 H (0.24-0.36) K/mm3 Eos # (Auto) 0.06 (0.04-0.36) K/mm3 Baso # (Auto) 0.02 (0.01-0.08) K/mm3 Manual Slide Review Sodium (136-145) mEq/L Potassium (3.5-5.1) mEq/L Chloride (98-107) mEq/L Carbon Dioxide (21-32) mEq/L Anion Gap (5-15) BUN (7-18) mg/dL Creatinine (0.55-1.02) mg/dL Est Cr Clr Drug Dosing mL/min Estimated GFR (MDRD) (>60) mL/min BUN/Creatinine Ratio (14-18) Glucose (70-99) mg/dL Calcium (8.5-10.1) mg/dL Magnesium (1.8-2.4) mg/dL Total Bilirubin (0.2-1.0) mg/dL AST (15-37) U/L ALT (14-59) U/L Alkaline Phosphatase (46-116) U/L C-Reactive Protein 0.7 (<1.0) mg/dL Total Protein (6.4-8.2) g/dl Albumin (3.4-5.0) g/dl Globulin gm/dL Albumin/Globulin Ratio (1-2) SARS-CoV-2 RNA (DALI) Positive H (NEGATIVE) 05/12/21 Range/Units 18:15 WBC (3.98-10.04) K/mm3 RBC (3.98-5.22) M/mm3 Hgb (11.2-15.7) gm/dl Hct (34.1-44.9) % MCV (79.4-94.8) fl MCH (25.6-32.2) pg MCHC (32.2-35.5) g/dl RDW Std Deviation (36.4-46.3) fL Plt Count (182-369) K/mm3 MPV (9.4-12.3) fl Neut % (Auto) (34.0-71.1) % Lymph % (Auto) (19.3-51.7) % Larue % (Auto) (4.7-12.5) % Eos % (Auto) (0.7-5.8) Baso % (Auto) (0.1-1.2) % Neut # (Auto) (1.56-6.13) K/mm3 Lymph # (Auto) (1.18-3.74) K/mm3 Larue # (Auto) (0.24-0.36) K/mm3 Eos # (Auto) (0.04-0.36) K/mm3 Baso # (Auto) (0.01-0.08) K/mm3 Manual Slide Review Sodium 138 (136-145) mEq/L Potassium 3.3 L (3.5-5.1) mEq/L Chloride 100 (98-107) mEq/L Carbon Dioxide 23 (21-32) mEq/L Anion Gap 18.3 H (5-15) BUN 8 (7-18) mg/dL Creatinine 1.1 H (0.55-1.02) mg/dL Est Cr Clr Drug Dosing 54.18 mL/min Estimated GFR (MDRD) 50 (>60) mL/min BUN/Creatinine Ratio 7.3 L (14-18) Glucose 109 H (70-99) mg/dL Calcium 8.8 (8.5-10.1) mg/dL Magnesium 2.0 (1.8-2.4) mg/dL Total Bilirubin 0.6 (0.2-1.0) mg/dL AST 30 (15-37) U/L ALT 32 (14-59) U/L Alkaline Phosphatase 140 H (46-116) U/L C-Reactive Protein (<1.0) mg/dL Total Protein 7.7 (6.4-8.2) g/dl Albumin 3.6 (3.4-5.0) g/dl Globulin 4.1 gm/dL Albumin/Globulin Ratio 0.9 L (1-2) SARS-CoV-2 RNA (DALI) (NEGATIVE) Meds: Medications Generic Name Dose Route Start Last Admin Trade Name Freq PRN Reason Stop Dose Admin Diphenhydramine HCl 50 mg 05/12/21 18:42 Diphenhydramine 50 Mg/Ml Sdv IVPUSH ASDIRECTED PRN hypersensitivity reaction Epinephrine HCl 0.3 mg 05/12/21 18:42 Epinephrine 1 Mg/Ml Sdv IM ASDIRECTED PRN hypersensitivity reaction Famotidine 20 mg 05/12/21 18:42 Famotidine 20 Mg/2 Ml Sdv IVPUSH ASDIRECTED PRN hypersensitivity reaction Methylprednisolone Sodium Succinate 125 mg 05/12/21 18:42 Methylprednisolone Sodium Succinate 125 Mg/2 Ml Sdv IVPUSH ASDIRECTED PRN hypersensitivity reaction Sodium Chloride 10 ml 05/12/21 17:45 05/12/21 18:26 Sodium Chloride 0.9% 10 Ml Syringe FLUSH 10 ml ASDIRECTED PRN Administration Keep Vein Open Sodium Chloride 30 ml 05/12/21 18:45 Sodium Chloride 0.9% 10 Ml Syringe FLUSH ASDIRECTED VIRAL Discontinued Medications Generic Name Dose Route Start Last Admin Trade Name Freq PRN Reason Stop Dose Admin CASIRIVIMAB/IMDEVIMAB 10 ml/ 110 mls @ 220 mls/hr 05/12/21 18:42 05/12/21 19:13 Sodium Chloride IV 05/12/21 19:11 220 mls/hr ONETIME ONE Administration - Re-Assessments/Exams Free Text/Narrative Re-Assessment/Exam: 05/12/21 17:55 Patient presents to the ER for evaluation of her [id number] illness. We will go ahead and swab her for the COVID-19 virus at this time, get some basic labs and a chest x-ray for ongoing management. 05/12/21 18:43 Patient's COVID-19 screen did come back positive. I spoke with the patient to provide information about monoclonal antibody treatment. I offered them the "Pa tient and caregiver EU monoclonal antibody fact sheet" to read and review. I stated that the drug has been approved by an emergency use authorization (EUA) process and has not been fully FDA reviewed or approved. The patient meets the EUA requirements. I discussed there are other potential treatment options that are currently not FDA approved to treat COVID-19. I did offer an opportunity to ask questions and all questions were answered. The patient voiced understanding and agreed to proceed with the treatment. Patient's chest x-ray did show a minimal parenchymal density within the left lung base, please rule out Covid disease. 05/12/21 19:35 Patient's labs are essentially unremarkable. Patient has potassium is just mildly low at 3.3. Departure - Departure Time of Disposition: 19:43 Disposition: Home, Self-Care 01 Condition: Good Clinical Impression: COVID-19 - Discharge Information *PRESCRIPTION DRUG MONITORING PROGRAM REVIEWED*: No *COPY OF PRESCRIPTION DRUG MONITORING REPORT IN PATIENT CAROLINE: No Instructions: 10 Things You Can Do to Manage Your COVID-19 Symptoms at Home - [facility] (01/24/2021) Referrals: Rhona Martin NP [Primary Care Provider] - Forms: ED Department Discharge Additional Instructions: You were seen in the ER today for ongoing and/or worsening respiratory symptoms. Your chest x-ray showed minimal signs of viral pneumonia typical for COVID-19 at this time. Your oxygen levels were great at 96% on room air. You were given IV monoclonal antibody therapy at today's visit, this medication is thought to work by making you a little less sick, and helps to decrease the length of time that you are sick. Please try to increase your oral fluid intake, and eat multiple small meals throughout the day, to keep yourself healthy. You need to keep yourself nourished in order to fight off this disease. You can try a liquid diet like gat orade/powerade as well to get your electrolytes. You may take 500 mg Tylenol every hours 6 hours for pain/fever relief. Do not exceed 4000 mg Tylenol in a 24-hour time span. However, running a fever is your body's natural response to illness, and it allows the body to develop antibodies to disease, we are recommending trying to limit the use of Tylenol as much as possible to allow your body's natural immune response. Recommend the use of Melatonin 5mg or Benadryl (diphenhydramine) 25mg for insomnia. Please take these medications about 1 hour before you plan to go to sleep to see if this helps. Recommend you obtain a pulse oximeter and monitor your oxygen levels at home, you should place the monitor on your finger, and sit in a calm, quiet position for a few minutes and then record the number that is on the screen. If this consistently below 90% on room air without movement, this would be cause for concern to come back to the hospital for further management of your COVID-19 disease. Please follow all guidance set forth from of [facility], regarding isolation purposes for your disease process. General isolation times are 10 days from when you started being symptomatic. Sepsis Event Note (ED) - Focused Exam Vital Signs: Vital Signs Temp Pulse Resp BP Pulse Ox 05/12/21 20:16 86 12 132/53 L 100 05/12/21 19:17 102 H 13 125/56 L 97 05/12/21 17:51 97.7 F 105 H 16 123/87 - My Orders Last 24 Hours: My Active Orders 05/12/21 17:45 Sodium Chloride 0.9% [Saline Flush] 10 ml FLUSH ASDIRECTED PRN Peripheral IV Insertion Adult [OM.PC] Routine 05/12/21 17:46 Peripheral IV Care [RC] . DIRECTED 05/12/21 18:42 EPINEPHrine [Adrenalin] 0.3 mg IM ASDIRECTED PRN Famotidine [Pepcid] 20 mg IVPUSH ASDIRECTED PRN diphenhydrAMINE [Benadryl] 50 mg IVPUSH ASDIRECTED PRN methylPREDNISolone Sod Succ [Solu-MEDROL] 125 mg IVPUSH ASDIRECTED PRN 05/12/21 18:43 Vital Signs [RC] Q15M 05/12/21 18:45 Sodium Chloride 0.9% [Saline Flush] 30 ml FLUSH ASDIRECTED - Assessment/Plan Last 24 Hours: My Active Orders 05/12/21 17:45 Sodium Chloride 0.9% [Saline Flush] 10 ml FLUSH ASDIRECTED PRN Peripheral IV Insertion Adult [OM.PC] Routine 05/12/21 17:46 Peripheral IV Care [RC] . DIRECTED 05/12/21 18:42 EPINEPHrine [Adrenalin] 0.3 mg IM ASDIRECTED PRN Famotidine [Pepcid] 20 mg IVPUSH ASDIRECTED PRN diphenhydrAMINE [Benadryl] 50 mg IVPUSH ASDIRECTED PRN methylPREDNISolone Sod Succ [Solu-MEDROL] 125 mg IVPUSH ASDIRECTED PRN 05/12/21 18:43 Vital Signs [RC] Q15M 05/12/21 18:45 Sodium Chloride 0.9% [Saline Flush] 30 ml FLUSH ASDIRECTED
--- NOTE | 2021-05-12 18:23 | CR ---
Chest: Frontal view of the chest was obtained. Comparison: No prior chest imaging is available. Heart size is normal. Tortuous thoracic aorta is seen. Scoliosis is noted within the spine. Minimal density is seen within the left lung base. Lungs otherwise are clear. Slight pleural thickening is seen within the left lung apex which is believed to be chronic. Impression: 1. Minimal parenchymal density within the left lung base. Please rule out COVID disease. Findings otherwise represent minimal pneumonia. 2. Incidental scoliosis. Diagnostic code #3
[2021-05-12] MEDS ORDERED: Famotidine 20 MG/2 ML SDV IVPUSH PRN (18:42)
[2021-05-12] MEDS ORDERED: EPINEPHrine 1 MG/ML SDV IM PRN (18:42)
[2021-05-12] MEDS ORDERED: methylPREDNISolone Sodium Succinate 125 MG/2 ML SDV IVPUSH PRN (18:42)
[2021-05-12] MEDS ORDERED: diphenhydrAMINE 50 MG/ML SDV IVPUSH PRN (18:42)
[2021-05-12] MEDS ORDERED: Sodium Chloride 0.9% 10 ML Syringe FLUSH SCH (18:45)
== END 2021-05-12 21:24 | disposition home or self-care (01) ==
LOC: JD.ED 17:33
DX: U07.1 COVID-19 (principal); E78.00 Pure hypercholesterolemia, unspecified; J44.9 Chronic obstructive pulmonary disease, unspecified; Z86.73 Personal history of transient ischemic attack (TIA), and cerebral infarction without residual deficits; Z79.899 Other long term (current) drug therapy
CPT/HCPCS: 36415; 71045; 71045-26; 80053; 83735; 85025; 86140; 99285-25; M0243; Q0243; U0002

== ENCOUNTER 2021-08-20 16:07 | Emergency (ER) | payer MEDICAID ==
[2021-08-20] MEDS ORDERED: HYDROmorphone 1 MG/ML Syringe IM ONE (17:35)
== END 2021-08-20 18:30 | disposition home or self-care (01) ==
LOC: JD.ED 16:07
DX: S42.294A Other nondisplaced fracture of upper end of right humerus, initial encounter for closed fracture (principal); S80.12XA Contusion of left lower leg, initial encounter; M79.645 Pain in left finger(s); E78.00 Pure hypercholesterolemia, unspecified; K21.9 Gastro-esophageal reflux disease without esophagitis; J44.9 Chronic obstructive pulmonary disease, unspecified; Z86.73 Personal history of transient ischemic attack (TIA), and cerebral infarction without residual deficits; Z79.899 Other long term (current) drug therapy; Z79.02 Long term (current) use of antithrombotics/antiplatelets; W18.09XA Striking against other object with subsequent fall, initial encounter
CPT/HCPCS: 73030; 73130; 96372; 99283; J1170

== ENCOUNTER 2021-08-31 21:51 | Emergency (ER) | payer MEDICAID | END 2021-08-31 23:03 | disposition home or self-care (01) | LOC: JD.ED 21:51 | DX: S62.357A Nondisplaced fracture of shaft of fifth metacarpal bone, left hand, initial encounter for closed fracture (principal); L03.116 Cellulitis of left lower limb; E78.00 Pure hypercholesterolemia, unspecified; K21.9 Gastro-esophageal reflux disease without esophagitis; Z86.73 Personal history of transient ischemic attack (TIA), and cerebral infarction without residual deficits; Z72.0 Tobacco use; W19.XXXA Unspecified fall, initial encounter | CPT/HCPCS: 29125; 73130-26-LT; 73130-LT; 73590-26-LT; 73590-LT; 99283; 99283-25 ==

== ENCOUNTER 2021-11-01 20:58 | Emergency (ER) | payer MEDICAID ==
[2021-11-01] MEDS ORDERED: Sodium Chloride 0.9% 1,000 ML IV ONE ×2 (21:47→22:45)
[2021-11-01 22:34] LABS: ACETAMINOPHEN 0 ug/mL (10-30)
[2021-11-01] MEDS ORDERED: Potassium Chloride 20 MEQ Tab.ER PO ONE (23:08)
[2021-11-02] MEDS ORDERED: Ondansetron 4 MG Tab.DIS PO ONE (02:41)
== END 2021-11-02 03:12 | disposition home or self-care (01) ==
LOC: JD.ED 20:58
DX: K83.1 Obstruction of bile duct (principal); N28.9 Disorder of kidney and ureter, unspecified; R17 Unspecified jaundice; E87.6 Hypokalemia; E78.00 Pure hypercholesterolemia, unspecified; J44.9 Chronic obstructive pulmonary disease, unspecified; K21.9 Gastro-esophageal reflux disease without esophagitis; Z86.73 Personal history of transient ischemic attack (TIA), and cerebral infarction without residual deficits; Z79.899 Other long term (current) drug therapy; Z72.0 Tobacco use; Z20.822 Contact with and (suspected) exposure to COVID-19
CPT/HCPCS: 36415; 74175; 76705; 80053; 80143; 80179; 81001; 82550; 82977; 83735; 84443; 84484; 85025; 85610; 85730; 86140; 87086; 87635; 93005; 99284; A9270; J7030; U0002

== ENCOUNTER 2023-02-10 20:48 | Emergency (ER) | payer MEDICAID ==
[2023-02-10 21:32] LABS: BASOPHILS ABSOLUTE AUTO 0.05 K/mm3 (0.01-0.08); BASOPHILS PERCENT AUTO 0.5 % (0.1-1.2); EOSINOPHILS ABSOLUTE AUTO 0.19 K/mm3 (0.04-0.36); HEMATOCRIT 41.8 % (34.1-44.9); IMMATURE GRAN ABSOLUTE AUTO 0.03 K/mm3 (0.00-0.10); IMMATURE GRAN PERCENT AUTO 0.3 % (<=1.0); LYMPHOCYTES ABSOLUTE AUTO 2.76 K/mm3 (1.18-3.74); LYMPHOCYTES PERCENT AUTO 28.6 % (19.3-51.7); MEAN CORPUSCULAR HEMOGLOBIN 27.4 pg (25.6-32.2); MEAN CORPUSCULAR HGB CONC 33.5 g/dl (32.2-35.5); MEAN CORPUSCULAR VOLUME 81.8 fl (79.4-94.8); MEAN PLATELET VOLUME 9.3 fl (9.4-12.3); MONOCYTES ABSOLUTE AUTO 0.96 K/mm3 (0.24-0.36); MONOCYTES PERCENT AUTO 9.9 % (4.7-12.5); NEUTROPHILS ABSOLUTE AUTO 5.66 K/mm3 (1.56-6.13); NEUTROPHILS PERCENT AUTO 58.7 % (34.0-71.1); PLATELET COUNT,PLT 300 K/mm3 (182-369); RED BLOOD CELL COUNT 5.11 M/mm3 (3.98-5.22); WHITE BLOOD CELL COUNT,WBC 9.65 K/mm3 (3.98-10.04)
[2023-02-10 21:55] LABS: ALBUMIN 3.5 g/dl (3.4-5.0); ANION GAP 12.5 (5-15); BILIRUBIN TOTAL 0.4 mg/dL (0.2-1.0); BUN/CREATININE RATIO 8.9 (14-18); CALCIUM 8.4 mg/dL (8.5-10.1); CREATININE 0.9 mg/dL (0.55-1.02); EST CRCL DRUG DOSING (CG) 65.38 mL/min; POTASSIUM,K 3.5 mEq/L (3.5-5.1)
[2023-02-10 21:57] LABS: INR 0.96; PROTHROMBIN TIME 10.3 SECONDS (9.7-12.0)
[2023-02-10 21:59] LABS: D-DIMER QUANTITATIVE 0.3 mg/L (0.19-0.50)
[2023-02-10 22:00] LABS: PTT,PARTIAL THROMBOPLSTIN TIME 24.8 SECONDS (21.7-31.4)
== END 2023-02-10 23:45 | disposition home or self-care (01) ==
LOC: JD.ED 20:48
DX: I69.352 Hemiplegia and hemiparesis following cerebral infarction affecting left dominant side (principal); I10 Essential (primary) hypertension; E78.00 Pure hypercholesterolemia, unspecified; J44.9 Chronic obstructive pulmonary disease, unspecified; K21.9 Gastro-esophageal reflux disease without esophagitis; F17.210 Nicotine dependence, cigarettes, uncomplicated; Z86.16 Personal history of COVID-19; Z79.899 Other long term (current) drug therapy
CPT/HCPCS: 36415; 70450; 70450-26; 80053; 82947; 84484; 85025; 85379; 85610; 85730; 93005; 93010; 99284; 99285

== ENCOUNTER 2024-07-13 13:18 | Emergency (ER) | payer BC, MEDICAID, MEDICARE, OTHER ==
[2024-07-13 14:39] LABS: BASOPHILS ABSOLUTE AUTO 0.1 K/mm3 (0.0-0.2); BASOPHILS PERCENT AUTO 0.6 % (0.0-1.0); EOSINOPHILS ABSOLUTE AUTO 0.1 K/mm3 (0.0-0.4); EOSINOPHILS PERCENT AUTO 1.3 % (0.0-6.0); HEMATOCRIT 41.1 % (37.0-47.0); HEMOGLOBIN 13.5 gm/dl (12.0-16.0); IMMATURE GRAN ABSOLUTE AUTO 0.04 K/mm3 (0.00-0.05); IMMATURE GRAN PERCENT AUTO 0.4 % (0.0-0.4); LYMPHOCYTES ABSOLUTE AUTO 2.8 K/mm3 (1.0-4.8); LYMPHOCYTES PERCENT AUTO 27.4 % (24.0-44.0); MEAN CORPUSCULAR HEMOGLOBIN 29.6 pg (28.0-32.0); MEAN CORPUSCULAR HGB CONC 32.8 g/dl (32.0-36.0); MEAN CORPUSCULAR VOLUME 90.1 fl (83.0-99.0); MONOCYTES ABSOLUTE AUTO 0.8 K/mm3 (0.0-0.8); MONOCYTES PERCENT AUTO 7.6 % (0.0-8.0); NEUTROPHILS ABSOLUTE AUTO 6.4 K/mm3 (1.8-7.7); NEUTROPHILS PERCENT AUTO 62.7 % (41.0-71.0); PLATELET COUNT,PLT 280 K/mm3 (150-400); RED BLOOD CELL COUNT 4.56 M/mm3 (4.10-5.30); WHITE BLOOD CELL COUNT,WBC 10.19 K/mm3 (3.9-11.3)
[2024-07-13 15:05] LABS: A/G RATIO 1.2 (1-2); ALANINE AMINOTRANSFERASE,ALT 32 U/L (14-59); ALBUMIN 3.7 g/dl (3.4-5.0); ALKALINE PHOSPHATASE 114 U/L (46-116); ANION GAP 13.7 (5-15); ASPARTATE AMNIOTRANSFERASE,AST 20 U/L (15-37); BILIRUBIN TOTAL 0.5 mg/dL (0.2-1.0); BLOOD UREA NITROGEN,BUN 13 mg/dL (7-18); BUN/CREATININE RATIO 14.4 (14-18); CALCIUM 8.7 mg/dL (8.5-10.1); CARBON DIOXIDE,CO2 28 mEq/L (21-32); CHLORIDE,CL 103 mEq/L (98-107); CREATININE 0.9 mg/dL (0.55-1.02); ESTIMATED GFR 71 mL/min (>60); PROTEIN TOTAL,TP 6.8 g/dl (6.4-8.2); SODIUM,NA 141 mEq/L (136-145)
[2024-07-13 15:08] LABS: TROPONIN I HIGH SENSITIVITY < 4 pg/mL (<=51)
[2024-07-13 15:09] LABS: GLUCOSE RANDOM 130 mg/dL (70-99); POTASSIUM,K 3.7 mEq/L (3.5-5.1)
== END 2024-07-13 15:40 | disposition home or self-care (01) ==
LOC: JD.ED 13:18
DX: R55 Syncope and collapse (principal); I10 Essential (primary) hypertension; J44.9 Chronic obstructive pulmonary disease, unspecified; K21.9 Gastro-esophageal reflux disease without esophagitis; E78.00 Pure hypercholesterolemia, unspecified; F17.210 Nicotine dependence, cigarettes, uncomplicated; Z79.899 Other long term (current) drug therapy; Z86.16 Personal history of COVID-19; Z90.49 Acquired absence of other specified parts of digestive tract
CPT/HCPCS: 36415; 80053; 83880; 84484; 85025; 93005; 93010; 93246; 99284